=== PATIENT | female | born 1965 | race Two or more races ===

== ENCOUNTER 2017-08-15 09:40 | Outpatient (CLI) | payer OTHER | END 2017-08-15 10:00 | disposition home or self-care (01) | LOC: MAMO-SONO 09:40 | DX: Z12.31 Encounter for screening mammogram for malignant neoplasm of breast (principal); N60.11 Diffuse cystic mastopathy of right breast; N60.12 Diffuse cystic mastopathy of left breast ==

== ENCOUNTER 2018-08-12 10:20 | Outpatient (CLI) | payer OTHER | END 2018-08-12 10:23 | disposition home or self-care (01) | LOC: MAMO-SONO 10:20 | DX: N60.11 Diffuse cystic mastopathy of right breast (principal); N60.12 Diffuse cystic mastopathy of left breast; Z12.31 Encounter for screening mammogram for malignant neoplasm of breast ==

== ENCOUNTER 2020-11-29 08:51 | Outpatient (CLI) | payer OTHER | END 2020-11-29 09:02 | disposition home or self-care (01) | LOC: SONOGRAMA 08:51 | DX: E06.3 Autoimmune thyroiditis (principal); E04.0 Nontoxic diffuse goiter; E78.2 Mixed hyperlipidemia; R73.01 Impaired fasting glucose ==

== ENCOUNTER 2021-04-05 08:34 | Outpatient (CLI) | payer OTHER | END 2021-04-05 08:44 | disposition home or self-care (01) | LOC: SONOGRAMA 08:34 | PROVIDERS: ATTEND Internal Medicine Gastroenterology | DX: K76.0 Fatty (change of) liver, not elsewhere classified (principal); R10.84 Generalized abdominal pain ==

== ENCOUNTER 2022-08-25 10:10 | Outpatient (CLI) | payer OTHER | END 2022-08-25 10:21 | disposition home or self-care (01) | LOC: MAMO-SONO 10:10 | PROVIDERS: ATTEND Obstetrics & Gynecology | DX: N60.11 Diffuse cystic mastopathy of right breast (principal); N60.12 Diffuse cystic mastopathy of left breast ==